=== PATIENT | female | born 1980 | race Two or more races ===

== ENCOUNTER 2017-09-18 18:49 | Emergency (ER) | payer OTHER ==
[2017-09-18] MEDS ORDERED: ONDANSETRON 4 MG/2 ML VIAL IVP ONE (18:59)
[2017-09-18] MEDS ORDERED: NS 1,000 ML IV ONE (18:59)
[2017-09-18] MEDS ORDERED: HALOPERIDOL LACT 5 MG/ML INJ IVP ONE (19:00)
[2017-09-18 19:01] VITALS: RESP 16; TEMP 98.8
--- NOTE | 2017-09-18 19:03 | EDPHY ---
H & P Stated Complaint: rt flank to rt low/mid abd pain,chills Time Seen by Provider: 09/18/17 18:55 HPI/ROS: CHIEF COMPLAINT: Abdominal pain HISTORY OF PRESENT ILLNESS: The patient is a 36-year-old female who comes to the emergency department complaining of diffuse abdominal pain that began around 3 o'clock this evening. She has felt nauseous but has not vomited. She had normal bowel movements today and yesterday. No fever. She states that she has had pain like this before which she was constipated but she has not been constipated recently. She states that her pain is diffuse but it is primarily in the right upper and right lower quadrants. No urinary symptoms. No vaginal bleeding or discharge. She denies risk of . The pain increases with movement. REVIEW OF SYSTEMS: Constitutional: denies: chills, fever, recent illness, recent injury EENTM: denies: blurred vision, double vision, nose congestion Respiratory: denies: cough, shortness of breath Cardiac: denies: chest pain, irregular heart rate, lightheadedness, palpitations Gastrointestinal/Abdominal: See HPI Genitourinary: denies: dysuria, frequency, hematuria, pain Musculoskeletal: denies: joint pain, muscle pain Skin: denies: lesions, rash, jaundice, bruising Neurological: denies: headache, numbness, paresthesia, tingling, dizziness, weakness Hematologic/Lymphatic: denies: blood clots, easy bleeding, easy bruising Immunologic/allergic: denies: HIV/AIDS, transplant EXAM: GENERAL: Anxious, shaking HEAD: Atraumatic, normocephalic. EYES: Pupils equal round and reactive to light, extraocular movements intact, sclera anicteric, conjunctiva are normal. ENT: TMs normal, nares patent, oropharynx clear without exudates. Moist mucous membranes. NECK: Normal range of motion, supple without lymphadenopathy or JVD. LUNGS: Breath sounds clear to auscultation bilaterally and equal. No wheezes rales or rhonchi. HEART: Regular rate and rhythm without murmurs, rubs or gallops. ABDOMEN: The patient has diffuse abdominal pain. She has severe pain even with brushing over the skin of her abdomen. She does not have tenderness however when distracted BACK: No CVA tenderness, no spinal tenderness, step-offs or deformities EXTREMITIES: Normal range of motion, no pitting or edema. No clubbing or cyanosis. NEUROLOGICAL: Cranial nerves II through XII grossly intact. Normal speech, normal gait. 5/5 strength, normal movement in all extremities, normal sensation PSYCH: Anxious, SKIN: Warm, dry, normal turgor, no visible rashes or lesions. Source: Patient Exam Limitations: No limitations - Personal History LMP (Females 10-55): Hysterectomy - Medical/Surgical History Hx Asthma: No Hx Chronic Respiratory Disease: No Hx Diabetes: No Hx Cardiac Disease: No Hx Renal Disease: No Hx Cirrhosis: No Other PMH: MEd hx-asthma,depression. Surg-hyst,knee,tonsilectomy,breast augmentation,tummy tuck - Family History Significant Family History: No pertinent family hx - Social History Alcohol Use: Sober Drug Use: None Constitutional: Initial Vital Signs Temperature (C) 37.1 C 09/18/17 18:55 Heart Rate 84 09/18/17 18:55 Respiratory Rate 16 09/18/17 18:55 Blood Pressure 126/105 H 09/18/17 18:55 O2 Sat (%) 97 09/18/17 18:55 O2 Delivery Mode Room Air Allergies/Adverse Reactions: No Known Allergies Allergy (Verified 09/18/17 18:53) Home Medications: Medication Instructions Recorded Albuterol Hfa Anes Only 09/18/17 FLUoxetine 09/18/17 Oxygen 2 l 09/18/17 Simethicone [Mylicon 80 mg (OTC)] 80 mg PO TID #20 tabchew 09/18/17 Medical Decision Making - Diagnostics Imaging Results: Imaging Impressions Abdomen Ultrasound 09/18/17 18:59 Impression: 1.Contracted GB likely related to a spaghetti dinner two hours ago. 2. Suboptimal exam due to bowel gas. Pelvic/Renal Ultrasound 09/18/17 18:59 Impression: Diffuse pelvic bowel gas. No free fluid. Results discussed with Dr. Boone at 8:03 pm. Imaging: Discussed imaging studies w/ flatwork catcher Radiologist ED Course/Re-evaluation: 8:08 p.m. patient is feeling much better. She has been passing gas. She did have normal bowel movement today. We discussed her lab work and ultrasound which are reassuring. She has a large amount of gas. Does not appear to be free air. Clinically she does not have an obstruction. She has never had any intraperitoneal surgeries. I did give her the option of x-ray or CT scanning to further rule out. She declines this and would prefer my look on and 24 hr observation. A request that she return in 24 hr for re-evaluation. abdominal exam is nontender. Differential Diagnosis: Partial list of the Differential diagnosis considered include but were not limited to; obstruction, gas, constipation and although unlikely based on the history and physical exam, I also considered biliary disease, ovarian cyst, ovarian torsion, appendicitis, kidney stone, urinary tract infection, . I discussed these differential diagnoses and the plan with the patient as well as the usual and expected course. The patient understands that the diagnosis is provisional and that in medicine we are not always correct and that further workup is often warranted. Usual and customary warnings were given. All of the patient's questions were answered. The patient was instructed to return to the emergency department should the symptoms at all worsen or return, otherwise to followup with the physician as we discussed. - Data Points Laboratory Results: Laboratory Results 09/18/17 19:14 09/18/17 19:14 09/18/17 09/18/17 09/18/17 19:14 19:14 19:14 WBC 5.50 10^3/uL 10^3/uL (3.80-9.50) RBC 4.47 10^6/uL 10^6/uL (4.18-5.33) Hgb 13.8 g/dL g/dL (12.6-16.3) Hct 38.9 % % (38.0-47.0) MCV 87.0 fL fL (81.5-99.8) MCH 30.9 pg pg (27.9-34.1) MCHC 35.5 g/dL g/dL (32.4-36.7) RDW 11.6 % % (11.5-15.2) Plt Count 261 10^3/uL 10^3/uL (150-400) MPV 8.4 fL L fL (8.7-11.7) Neut % (Auto) 49.1 % % (39.3-74.2) Lymph % (Auto) 40.2 % % (15.0-45.0) Roberts % (Auto) 7.6 % % (4.5-13.0) Eos % (Auto) 2.5 % % (0.6-7.6) Baso % (Auto) 0.4 % % (0.3-1.7) Nucleat RBC Rel Count 0.0 % % (0.0-0.2) Absolute Neuts (auto) 2.70 10^3/uL 10^3/uL (1.70-6.50) Absolute Lymphs (auto) 2.21 10^3/uL 10^3/uL (1.00-3.00) Absolute Monos (auto) 0.42 10^3/uL 10^3/uL (0.30-0.80) Absolute Eos (auto) 0.14 10^3/uL 10^3/uL (0.03-0.40) Absolute Basos (auto) 0.02 10^3/uL 10^3/uL (0.02-0.10) Absolute Nucleated RBC 0.00 10^3/uL 10^3/uL (0-0.01) Immature Gran % 0.2 % % (0.0-1.1) Immature Gran # 0.01 10^3/uL 10^3/uL (0.00-0.10) Sodium 139 mEq/L mEq/L (134-144) Potassium 4.1 mEq/L mEq/L (3.5-5.2) Chloride 102 mEq/L mEq/L (97-110) Carbon Dioxide 24 mEq/l mEq/l (22-31) Anion Gap 13 mEq/L mEq/L (8-16) BUN 10 mg/dL mg/dL (7-23) Creatinine 0.6 mg/dL mg/dL (0.6-1.0) Estimated GFR > 60 Glucose 93 mg/dL mg/dL (70-100) Calcium 9.6 mg/dL mg/dL (8.5-10.4) Total Bilirubin 0.4 mg/dL mg/dL (0.1-1.4) Conjugated Bilirubin 0.2 mg/dL mg/dL (0.0-0.5) Unconjugated Bilirubin 0.2 mg/dL mg/dL (0.0-1.1) AST 22 IU/L IU/L (14-46) ALT 32 IU/L IU/L (9-52) Alkaline Phosphatase 66 IU/L IU/L (38-126) Total Protein 7.8 g/dL g/dL (6.3-8.2) Albumin 4.4 g/dL g/dL (3.5-5.0) Lipase 152 IU/L IU/L (23-300) Beta HCG, Qual NEGATIVE Medications Given: Discontinued Medications Diphenhydramine HCl (Benadryl Injection) 25 mg IVP EDNOW ONE Stop: 09/18/17 19:01 Last Admin: 09/18/17 19:10 Dose: 25 mg Haloperidol Lactate (Haldol Injection) 2.5 mg IVP EDNOW ONE Stop: 09/18/17 19:01 Last Admin: 09/18/17 19:10 Dose: 2.5 mg Sodium Chloride (Ns) 1,000 mls @ 0 mls/hr IV EDNOW ONE; Wide Open PRN Reason: Protocol Stop: 09/18/17 19:00 Last Admin: 09/18/17 19:12 Dose: 1,000 mls Ketorolac Tromethamine (Toradol) 30 mg IVP EDNOW ONE Stop: 09/18/17 19:45 Last Admin: 09/18/17 19:47 Dose: 30 mg Ondansetron HCl (Zofran) 4 mg IVP EDNOW ONE Stop: 09/18/17 19:00 Last Admin: 09/18/17 19:10 Dose: 4 mg Simethicone (Mylicon) 80 mg PO EDNOW ONE Stop: 09/18/17 20:09 Last Admin: 09/18/17 20:14 Dose: 80 mg Departure - Departure Disposition: Home, Routine, Self-Care Clinical Impression: Abdominal pain Qualifiers: Abdominal location: generalized Qualified Code(s): R10.84 - Generalized abdominal pain Condition: Fair Instructions: Simethicone (By mouth), Acute Abdominal Pain (ED), Gas and Bloating (ED) Referrals: Michelle Hansen MD [Primary Care Provider] - As per Instructions Prescriptions: Simethicone [Mylicon 80 mg (OTC)] 80 mg PO TID #20 tabchew
[2017-09-18 19:29] LABS: PLATELET COUNT 261 10^3/uL (150-400)
[2017-09-18] MEDS ORDERED: KETOROLAC 30 MG/1 ML SDV IVP ONE (19:44)
[2017-09-18] MEDS ORDERED: SIMETHICONE 80 MG TAB CHEW PO ONE (20:08)
[2017-09-18 20:30] VITALS: BP 101/67; PULSE 80; O2SAT 97
== END 2017-09-18 20:41 | disposition home or self-care (01) ==
LOC: CED 18:49
DX: R10.84 Generalized abdominal pain (principal); E86.9 Volume depletion, unspecified; J45.909 Unspecified asthma, uncomplicated; Z90.710 Acquired absence of both cervix and uterus
CPT/HCPCS: 76705-PO; 80048-PO; 80076-PO; 83690-PO; 84703-PO; 85025-PO; 96374; J1200; J1630; J1885; J2405